=== PATIENT | female | born 1975 | race Hispanic/Latino ===

== ENCOUNTER 2020-09-08 11:49 | Emergency (ER) | payer OTHER ==
[~2020-09-08] VITALS: Ht 147.3 cm; Wt 65.8 kg
[2020-09-08] MEDS ORDERED: KETOROLAC TROMETHAMINE 30 MG/ML VIAL IV STA (12:05)
[2020-09-08] MEDS ORDERED: PANTOPRAZOLE 40 MG 10ML VIAL IV STA (12:05)
[2020-09-08 12:17] LABS: BASOPHILS % 0.6 % (0.0-1.0); EOSINOPHILS # (AUTO) 0.2 (0.0-0.4); EOSINOPHILS % 2.5 % (0.0-6.0); HEMATOCRIT 37.5 % (34.2-44.1); HEMOGLOBIN 12.4 g/dL (12.0-16.0); LYMPHOCYTES # (AUTO) 1.7 (1.0-3.2); LYMPHOCYTES % 24.7 % (18.0-39.1); MEAN CORPUSCULAR HEMOGLOBIN 28.2 pg (28-32); MEAN CORPUSCULAR HGB CONC 33.1 g/dL (31-35); MEAN CORPUSCULAR VOLUME 85.2 fL (81-99); MONOCYTES # (AUTO) 0.5 (0.2-0.8); MONOCYTES % 6.9 % (4.4-11.3); NEUTROPHILS # (AUTO) 4.4 (2.1-6.9); PLATELET COUNT 317 x10e3/uL (140-360); RED CELL DISTRIBUTION WIDTH 14.5 % (11.7-14.4)
[2020-09-08 12:28] LABS: INR 0.94
[2020-09-08 12:29] LABS: PARTIAL THROMBOPLASTIN TIME 27.1 seconds (23.8-35.5)
[2020-09-08 12:36] LABS: ALANINE AMINOTRANSFERASE 17 IU/L (0-55); ALBUMIN 3.8 g/dL (3.5-5.0); ALBUMIN/GLOBULIN RATIO 1.1 (0.8-2.0); ALKALINE PHOSPHATASE 68 IU/L (40-150); ANION GAP 13.3 mmol/L (8-16); BLOOD UREA NITROGEN 6 mg/dL (7-26); BUN/CREATININE RATIO 8 (6-25); CALCIUM 8.7 mg/dL (8.4-10.2); CARBON DIOXIDE 26 mmol/L (22-29); CHLORIDE 106 mmol/L (98-107); CREATINE KINASE 60 IU/L (29-168); CREATININE, SERUM 0.71 mg/dL (0.57-1.11); EST GLOMERULAR FILTRATION RATE > 60 ML/MIN (60-); GLUCOSE 99 mg/dL (74-118); POTASSIUM 3.3 mmol/L (3.5-5.1); SODIUM 142 mmol/L (136-145)
--- NOTE | 2020-09-08 12:57 | Diagnostic Imaging Report ---
TECHNIQUE: Frontal view of the chest. INDICATION: ^CP COMPARISON: None DISCUSSION: Limited evaluation due to portable technique. Lines and hardware: Overlying EKG leads are noted. Heart and mediastinum: Within normal limits. Lungs and pleura: No focal airspace consolidation. No pleural effusion. No pneumothorax. Soft tissues and bones: No acute abnormality. IMPRESSION: Negative for acute intrathoracic process. Signed by: Navneet Watson MD on 09/08/2020 12:54 PM
--- NOTE | 2020-09-08 13:15 | Emergency Department Note ---
History of Present Illnes History of Present Illness Chief Complaint: Chest Pain History of Present Illness This is a 45 year old female PATIENT IN FROM HOME WITH COMPLAINTS OF INTERMITTENT LEFT SIDED CHEST PAIN SINCE 0730 THIS MORNING; STATES PAIN COMES AND GOES, NO PAIN UPON PALPATION, STATES PAIN MADE HER FEEL NAUSEOUS AND ZACH PHORETIC. PATIENT ALERT AND ORIENTED, RESP EVEN AND NONLABORED, APPEARS IN NO DISTRESS, AMBULATORY WITHOUT ASSISTANCE. Historian: Patient Arrival Mode: Car Ux Architect Required: No Onset (how long ago): hour(s) Location: LEFT CHEST Quality: PAIN Radiation: Reports non-radiation Severity: moderate Onset quality: gradual Timing of current episode: intermittent Progression: waxing and waning Chronicity: new Context: Denies recent illness Relieving factors: none Exacerbating factors: none Associated symptoms: Reports denies other symptoms, Reports chest pain Past Medical/Family History Physician Review I have reviewed the patient's past medical and family history. Any updates have been documented here. Past Medical History Recent Fever: No Clinical Suspicion of Infectio: No New/Unexplained Change in Ment: No Past Medical History: None Past Surgical History: Tubal Ligation Social History Smoking Cessation: Never Smoker Counseling Performed: No Alcohol Use: Occasional Any Illegal Drug Use: No TB Exposure/Symptoms: No Physically hurt or threatened: No Family History Family history of heart diseas: No Other Any Pre-Existing Lines (PICC,: No Review of Systems Review of Systems Constitutional: Reports no symptoms EENTM: Reports no symptoms Cardiovascular: Reports as per HPI, Reports chest pain Respiratory: Reports no symptoms Gastrointestinal: Reports no symptoms Genitourinary: Reports no symptoms Musculoskeletal: Reports no symptoms Integumentary: Reports no symptoms Neurological: Reports no symptoms Psychological: Reports no symptoms Endocrine: Reports no symptoms Hematological/Lymphatic: Reports no symptoms Physical Exam Related Data Allergies: Coded Allergies: No Known Allergies (Unverified , 09/08/20) Triage Vital Signs Vital Signs Date Time Temp Pulse Resp B/P (MAP) Pulse Ox O2 Delivery O2 Flow Rate FiO2 09/08/20 11:56 97.2 65 18 172/94 99 Room Air Vital signs reviewed: Yes Physical Exam CONSTITUTIONAL Constitutional: Present well-developed, Present well-nourished HENT HENT: Present normocephalic, Present atraumatic, Present oropharynx clear/moist, Present nose normal HENT L/R: Present left ext ear normal, Present right ext ear normal EYES Eyes: Reports PERRL, Reports conjunctivae normal NECK Neck: Present ROM normal PULMONARY Pulmonary: Present effort normal, Present breath sounds normal CARDIOVASCULAR Cardiovascular: Present regular rhythm, Present heart sounds normal, Present capillary refill normal, Present normal rate, Present other (SOME REPRODUCIBLE TENDERNESS LEFT OF STERNUM) GASTROINTESTINAL Abdominal: Present soft, Present nontender, Present bowel sounds normal GENITOURINARY Genitourinary: Present exam deferred SKIN Skin: Present warm, Present dry MUSCULOSKELETAL Musculoskeletal: Present ROM normal NEUROLOGICAL Neurological: Present alert, Present oriented x 3, Present no gross motor or sensory deficits PSYCHOLOGICAL Psychological: Present mood/affect normal, Present judgement normal Results Laboratory Result Diagram: 09/08/20 1209 09/08/20 1209 Laboratory Laboratory Tests Test 09/08/20 12:09 White Blood Count 6.81 x10e3/uL (4.8-10.8) Red Blood Count 4.40 x10e6/uL (3.6-5.1) Hemoglobin 12.4 g/dL (12.0-16.0) Hematocrit 37.5 % (34.2-44.1) Mean Corpuscular Volume 85.2 fL (81-99) Mean Corpuscular Hemoglobin 28.2 pg (28-32) Mean Corpuscular Hemoglobin Concent 33.1 g/dL (31-35) Red Cell Distribution Width 14.5 % (11.7-14.4) Platelet Count 317 x10e3/uL (140-360) Neutrophils (%) (Auto) 65.0 % (38.7-80.0) Lymphocytes (%) (Auto) 24.7 % (18.0-39.1) Monocytes (%) (Auto) 6.9 % (4.4-11.3) Eosinophils (%) (Auto) 2.5 % (0.0-6.0) Basophils (%) (Auto) 0.6 % (0.0-1.0) Neutrophils # (Auto) 4.4 (2.1-6.9) Lymphocytes # (Auto) 1.7 (1.0-3.2) Monocytes # (Auto) 0.5 (0.2-0.8) Eosinophils # (Auto) 0.2 (0.0-0.4) Basophils # (Auto) 0.0 (0.0-0.1) Absolute Immature Granulocyte (auto 0.02 x10e3/uL (0-0.1) Prothrombin Time 13.0 seconds (11.9-14.5) Prothromb Time International Ratio 0.94 Activated Partial Thromboplast Time 27.1 seconds (23.8-35.5) D-Dimer Quantitative (PE/DVT) 0.26 ug/mLFEU (0.00-0.45) Sodium Level 142 mmol/L (136-145) Potassium Level 3.3 mmol/L (3.5-5.1) Chloride Level 106 mmol/L (98-107) Carbon Dioxide Level 26 mmol/L (22-29) Anion Gap 13.3 mmol/L (8-16) Blood Urea Nitrogen 6 mg/dL (7-26) Creatinine 0.71 mg/dL (0.57-1.11) Estimat Glomerular Filtration Rate > 60 ML/MIN (60-) BUN/Creatinine Ratio 8 (6-25) Glucose Level 99 mg/dL (74-118) Calcium Level 8.7 mg/dL (8.4-10.2) Total Bilirubin 0.3 mg/dL (0.2-1.2) Aspartate Amino Transf (AST/SGOT) 18 IU/L (5-34) Alanine Aminotransferase (ALT/SGPT) 17 IU/L (0-55) Alkaline Phosphatase 68 IU/L (40-150) Creatine Kinase 60 IU/L (29-168) Creatine Kinase MB 0.50 ng/mL (0-5.0) Troponin I 0.006 ng/mL (0-0.300) Total Protein 7.4 g/dL (6.5-8.1) Albumin 3.8 g/dL (3.5-5.0) Globulin 3.6 g/dL (2.3-3.5) Albumin/Globulin Ratio 1.1 (0.8-2.0) Human Chorionic Gonadotropin, Qual Negative (NEGATIVE) Lab results reviewed: Yes Imaging Imaging results reviewed: Yes Procedures 12 Lead ECG Interpretation ECG Interpretation : ECG: ECG 1 Ux Architect: Interpreted by ED physician Date: Sep 08, 2020 Time: 11:57 Rhythm: sinus rhythm Rate: normal BPM: 64 QRS axis: normal ST segments normal: Yes T waves normal: Yes Clinical Impression: normal ECG Assessment & Plan Medical Decision Making MDM CP WITHOUT CARDIAC RF'S - CHECK CBC, CHEM, CARDIAC ENZYMES, CXR - R/O STEMI/NSTEMI, COSTOCHONDRITIS, LUNG ABNL, ELECTROLYTE ABNL Reassessment Reassessment I SPOKE WITH DR PEÑALOZA - HE WILL SEE PATIENT NOW IN CLINIC FOR FURTHER W/U Assessment & Plan Final Impression: (1) Chest pain Depart Disposition: HOME, SELF-CARE (TO DR PEÑALOZA'S CLINIC NOW) Last Vital Signs Date Time Temp Pulse Resp B/P (MAP) Pulse Ox O2 Delivery O2 Flow Rate FiO2 09/08/20 13:05 57 17 124/81 100 Room Air 09/08/20 11:56 97.2 Medications in the ED Pantoprazole Sodium 40 mg ONCE STAT IV Last administered on 09/08/20at 13:05; Admin Dose 40 MG; Start 09/08/20 at 12:05; Stop 09/08/20 at 12:08; Status DC Ketorolac Tromethamine 30 mg ONCE STAT IV Last administered on 09/08/20at 13:05; Admin Dose 30 MG; Start 09/08/20 at 12:05; Stop 09/08/20 at 12:08; Status DC GUILLERMO CHOWDHURY MD Sep 08, 2020 13:15
--- OUTSIDE RECORDS SUMMARY | 2020-09-08 13:17 | XMS REPORT | Continuity of Care Document ---
Author Author [facility] Organization [facility] Address [address] [place] [address] Phone Unavailable Care Team Providers Care Fashion Editor Name Role Phone Jonathan CHOWDHURY Attphys Unavailable Payers Payer Name Policy Type Policy Number Effective Date Expiration Date S ource Problems This patient has no known problems. Allergies, Adverse Reactions, Alerts Allergy Name Allergy Type Status Severity Reaction(s) Onset Date Inacti ve Date Treating Clinician Comments Source No Known Drug Intolerances DA Active U 2005-07-21 00:00:0 0 [facility] No Known Contrast Allergies DA Active U 2005-07-21 00:00: 00 [facility] No Known Drug Allergies DA Active U 2005-07-21 00:00:00 [facility] No Known Food Allergies DA Active U 2005-07-21 00:00:00 [facility] No Known Other Allergies DA Active U 2005-07-21 00:00:00 [facility] Medications This patient has no known medications. Procedures This patient has no known procedures. Results Test Description Test Time Test Comments Results Result Comments Source CHEST SINGLE (PORTABLE) 2020-09-08 12:53:00 [facility] [address] [place], [place] [address] Patient Name: ANGEL PERLA MR #: [id number] : 1975 Age/Sex: 45/F Req #: [id number] Adm Physician: Ordered by: GUILLERMO CHOWDHURY MD Report #: [id number] Location: ER Room/Bed: Procedure: [id number] DX/CHEST SINGLE (PORTABLE) Exam Date: Exam Time: REPORT STATUS: Signed TECHNIQUE: Frontal view of the chest. INDICATION: CP COMPARISON: None DISCUSSION: Limited evaluation due to portable technique. Lines and hardware: Overlying EKG leads are noted. Heart and mediastinum: Within normal limits. Lungs and pleura: No focal airspace consolidation. No pleural effusion. No pneumothorax. Soft tissues and bones: No acute abnormality. IMPRESSION: Negative for acute intrathoracic process. Signed by: Kiah Watson MD on 09/08/2020 12:54 PM Dictated By: KIAH WATSON MD [id number] Transcribed By: JEANNINE on 09/08/20 125 COPY TO: GUILLERMO CHOWDHURY MD
[2020-09-08 14:07] VITALS: BP 115/73
== END 2020-09-08 14:23 | disposition home or self-care (01) ==
LOC: ER 13:16
DX: R07.9 Chest pain, unspecified (principal)
CPT/HCPCS: 36415; 71045; 80053; 82550; 82553; 84484; 84702; 85025; 85379; 85610; 85730; 93005; 99284; C9113; J1885

== ENCOUNTER → 2025-01-31 | Day surgery (SDC) | payer BC, OTHER ==
[~2025-01-31] MED LIST: ALBUTEROL0.63 MG/3 NEB; LEVOTHYROXINE25 MCG PO; LIDOCAINE HCL 2% LOCAL INJ 5 ML SDV VIAL INJ ONE; MIDAZOLAM HCL 2 MG/2 ML VIAL ONE; PROPOFOL IV EMULSION 10 MG/ML 20 ML VIAL ONE
[2025-01-31] MEDS: LACTATED RINGER'S 1,000 ML ONE (08:50)
[2025-01-31 11:09] VITALS: TEMP 97.4
[2025-01-31 11:24] VITALS: BP 120/70; PULSE 80; RESP 16; O2SAT 98
== END | disposition home or self-care (01) ==
LOC: OR 08:33
PROVIDERS: ATTEND Internal Medicine Gastroenterology
DX: Z12.11 Encounter for screening for malignant neoplasm of colon (principal); K64.8 Other hemorrhoids; E03.9 Hypothyroidism, unspecified; R94.6 Abnormal results of thyroid function studies; R03.0 Elevated blood-pressure reading, without diagnosis of hypertension; Z01.810 Encounter for preprocedural cardiovascular examination; Z79.899 Other long term (current) drug therapy; Z68.32 Body mass index [BMI] 32.0-32.9, adult; Z85.850 Personal history of malignant neoplasm of thyroid; Z92.3 Personal history of irradiation; Z80.0 Family history of malignant neoplasm of digestive organs
CPT/HCPCS: 45378; 81025; 93005; J2003; J2250; J2704; J7121